=== PATIENT | male | born 1980 | race Caucasian/White ===

== ENCOUNTER 2017-07-13 18:04 | Emergency (ER) | payer MEDICAID ==
[~2017-07-13] VITALS: Ht 175.3 cm; Wt 65.0 kg
[2017-07-13 19:04] VITALS: BP 124/74
== END 2017-07-13 19:05 | disposition home or self-care (01) ==
LOC: ER 18:04
DX: Z02.89 Encounter for other administrative examinations (principal); F15.10 Other stimulant abuse, uncomplicated; F11.10 Opioid abuse, uncomplicated; Z88.0 Allergy status to penicillin
CPT/HCPCS: 99283

== ENCOUNTER 2019-06-16 17:33 | Emergency (ER) | payer MEDICAID ==
[~2019-06-16] VITALS: Ht 175.3 cm; Wt 75.0 kg
[2019-06-16 17:42] VITALS: BP 130/81
[2019-06-16] MEDS ORDERED: CLIN300C71 PO (17:51)
[2019-06-17] MEDS ORDERED: HYDR-4383 PO (04:16)
[2019-06-17] MEDS ORDERED: IBUP-1986 PO (04:23)
== END 2019-06-16 18:00 | disposition home or self-care (01) ==
LOC: ER 17:33
DX: K08.89 Other specified disorders of teeth and supporting structures (principal); F15.90 Other stimulant use, unspecified, uncomplicated; F11.90 Opioid use, unspecified, uncomplicated; Z88.0 Allergy status to penicillin; Z79.2 Long term (current) use of antibiotics
CPT/HCPCS: 99283

== ENCOUNTER 2019-06-17 03:53 | Emergency (ER) | payer MEDICAID ==
[~2019-06-17] VITALS: Ht 175.3 cm; Wt 75.0 kg
[~2019-06-17 03:53] MED LIST: CLIN300C71 PO
[2019-06-17] MEDS ORDERED: HYDR-4383 PO (04:16)
[2019-06-17] MEDS ORDERED: IBUP-1986 PO (04:23)
[2019-06-17 04:30] VITALS: BP 138/62
== END 2019-06-17 04:30 | disposition home or self-care (01) ==
LOC: ER 03:54
DX: K08.89 Other specified disorders of teeth and supporting structures (principal); F15.90 Other stimulant use, unspecified, uncomplicated; F11.90 Opioid use, unspecified, uncomplicated; Z88.0 Allergy status to penicillin; Z79.899 Other long term (current) drug therapy
CPT/HCPCS: 99282

== ENCOUNTER 2022-04-24 14:57 | Emergency (ER) | payer MEDICAID ==
[~2022-04-24] VITALS: Ht 175.3 cm; Wt 78.6 kg
[~2022-04-24 14:57] MED LIST changes: -CLIN300C71 PO; +IBUP-1986 PO
[2022-04-24 15:00] VITALS: BP 145/95
[2022-04-24] MEDS ORDERED: IBUP-1986 PO (15:59)
[2022-04-24] MEDS ORDERED: CLIN-97 PO (15:59)
== END 2022-04-24 16:04 | disposition home or self-care (01) ==
LOC: ER 14:58
DX: K04.7 Periapical abscess without sinus (principal); F15.90 Other stimulant use, unspecified, uncomplicated; F11.90 Opioid use, unspecified, uncomplicated; Z88.0 Allergy status to penicillin; Z79.899 Other long term (current) drug therapy; Z76.0 Encounter for issue of repeat prescription; Z56.0 Unemployment, unspecified
CPT/HCPCS: 99283

== ENCOUNTER 2023-04-06 18:54 | Emergency (ER) | payer MEDICAID ==
[~2023-04-06] VITALS: Ht 175.3 cm; Wt 77.3 kg
[~2023-04-06 18:54] MED LIST changes: +CLIN-97 PO
[2023-04-06 19:11] VITALS: BP 128/83; PULSE 94; RESP 18; TEMP 98.4; O2SAT 98
[2023-04-06 21:20] LABS: URINE AMPHETAMINE SCREEN NEGATIVE (Neg); URINE BARBITUATE SCREEN NEGATIVE (Neg); URINE BENZODIAZEPINES SCREEN POSITIVE (Neg); URINE CANNABINOID SCREEN NEGATIVE (Neg); URINE COCAINE SCREEN NEGATIVE (Neg); URINE METHADONE SCREEN NEGATIVE (Neg); URINE OPIATE SCREEN NEGATIVE (Neg); URINE PHENCYCLIDINE SCREEN NEGATIVE (Neg)
== END 2023-04-06 23:41 | disposition home or self-care (01) ==
LOC: ER 18:54
DX: Z00.00 Encounter for general adult medical examination without abnormal findings (principal); F15.90 Other stimulant use, unspecified, uncomplicated; Z88.1 Allergy status to other antibiotic agents; Z79.1 Long term (current) use of non-steroidal anti-inflammatories (NSAID); Z79.2 Long term (current) use of antibiotics
CPT/HCPCS: 36415; 80305; 80320; 99283

== ENCOUNTER → 2023-05-20 | Emergency (ER) | payer MEDICAID ==
[~2023-05-20] VITALS: Ht 175.3 cm; Wt 72.7 kg
[2023-05-20 20:39] VITALS: BP 142/94; PULSE 94; RESP 16; TEMP 98.6; O2SAT 98
== END | disposition home or self-care (01) ==
LOC: ER 22:02
DX: S80.212A Abrasion, left knee, initial encounter (principal); S80.211A Abrasion, right knee, initial encounter; F15.90 Other stimulant use, unspecified, uncomplicated; Z88.0 Allergy status to penicillin; Z79.2 Long term (current) use of antibiotics; Z79.899 Other long term (current) drug therapy; Z56.0 Unemployment, unspecified; X58.XXXA Exposure to other specified factors, initial encounter; Y93.89 Activity, other specified; Y92.89 Other specified places as the place of occurrence of the external cause; Y99.8 Other external cause status
CPT/HCPCS: 99283

== ENCOUNTER 2023-07-06 07:30 | Emergency (ER) | payer MEDICAID ==
[~2023-07-06] VITALS: Ht 175.3 cm; Wt 81.8 kg
[2023-07-06 07:36] VITALS: BP 139/97; PULSE 77; RESP 16; TEMP 98; O2SAT 98
[2023-07-06] MEDS ORDERED: buprenorphine/naloxone 8mg/2mg SL tablet SL PRN (08:40)
[2023-07-06] MEDS ORDERED: buprenorphine/naloxone 8MG-2MG SUBlingual film SL PRN (09:12)
[2023-07-06] MEDS: clonazePAM 1mg tablet PO ONE (09:25)
[2023-07-06] MEDS: buprenorphine/naloxone 8MG-2MG SUBlingual film SL ONE (09:25)
== END 2023-07-06 09:32 ==
LOC: ER 07:30
DX: S80.02XA Contusion of left knee, initial encounter (principal); F17.200 Nicotine dependence, unspecified, uncomplicated; F15.90 Other stimulant use, unspecified, uncomplicated; F11.90 Opioid use, unspecified, uncomplicated; V49.60XA Unspecified car occupant injured in collision with unspecified motor vehicles in traffic accident, initial encounter; Y93.89 Activity, other specified; Y92.89 Other specified places as the place of occurrence of the external cause; Y99.8 Other external cause status
CPT/HCPCS: 99283